=== PATIENT | male | born 1960 | race Caucasian/White ===

== ENCOUNTER 2020-08-15 06:53 | Outpatient (NON) | payer BC, SELFPAY ==
[2020-08-16 01:47] LABS: SARS-CoV-2 RNA PCR Positive
== END 2020-08-15 06:54 ==
LOC: ANHCOVIDDT 07:22
PROVIDERS: PCP Family Medicine; Visit Provider Physician Assistant Medical
DX: U07.1 COVID-19 (principal)
CPT/HCPCS: 87635; C9803; U0003

== ENCOUNTER 2022-12-13 01:01 | Day surgery (SDC) | payer BC, SELFPAY ==
[2022-12-01 14:20] VITALS: BMI 29.1
[2022-12-13 11:54] VITALS: BP 132/86; PULSE 55; RESP 16; TEMP 35.9; O2SAT 99
--- NOTE | 2022-12-13 12:02 | WPDANESEPPF ---
Anes - Initial Pre Proc Eval Procedure: Operation Date: 12/13/22 13:00 Proposed Procedures p Esophagogastroduodenoscopy EGD - Edinson Fagan MD Date/Time: 12/13/22 12:02 Surgeon: Edinson Fagan MD Pre Op Diagnosis: other disease of vocal cord and GERD Patient Data Age: 62 Gender: M Height: 1.73 m Weight: 89.3 kg Last Vital Signs Temp 35.9 C L 12/13/22 11:54 Pulse 55 L 12/13/22 11:54 Resp 16 12/13/22 11:54 BP 132/86 12/13/22 11:54 Pulse Ox 99 12/13/22 11:54 O2 Del Method Room Air 12/13/22 11:54 Allergies Allergy/AdvReac Type Severity Reaction Status Date / Time prednisone AdvReac Unknown Unknown Verified 12/13/22 11:51 Home Medications Medication Instructions Recorded Confirmed Type loratadine 10 mg tablet (Claritin) 10 mg PO DAILY 05/14/22 12/13/22 History pseudoephedrine HCl 30 mg tablet 30 mg PO Q4-6H PRN Allergy Symptoms 05/14/22 12/13/22 History (Sudafed) sildenafil (pulm.hypertension) 20 20 mg PO DAILY PRN sexual activity 08/05/22 12/13/22 Rx mg tablet #30 tabs clobetasol 0.05 % topical foam 1 applic topical DAILY #100 grams 11/12/22 12/13/22 Rx lisinopril 5 mg tablet 5 mg PO DAILY #90 tabs 11/12/22 12/13/22 Rx Patient hx anesthesia problems: none Family hx anesthesia problems: none Results Review: All pre-operative results and documents have been reviewed as part of the pre-operative evaluation. [facility] Past Medical History Medical History Anosmia COVID-19 Obesity (BMI 30.0-34.9) Obstructive sleep apnea Family History Family History Sibling Family history of ulcerative colitis Father Family history of kidney disease Social History Social History (Updated 11/12/22 @ 14:40 by Jesus Montoya MA) Smoking status: Never smoker Alcohol intake: current Drinks per week: 6 Alcohol use details: on occasion Substance use: never Substance use type: does not use Lack of Transportation: No Lack of Food: Never True Current Housing: I Have Housing Concerned About Future Housing: No Difficulty Paying Gas/Electric Bills: No Difficulty Paying for Meds: No Currently Unemployed: No Education: Bachelor's Degree Difficulty w/ Childcare or Family Care: No Living arrangements: with family Occupation/Education: occupation Gender identity (if verbalized by the patient): Male Spiritual care concerns: No Anes - Eval Final PreProcedure Day of Procedure 12/13/22 12:02 Patient weight: obese Heart: regular rate and rhythm Lungs: clear to auscultation and normal air movement Airway: Mallampati scale class II Neurological: alert and oriented Last oral intake: >/= 8 hours ASA classification: III Emergent: no Anesthetic plan: proceed Anesthesia type and monitoring: general GIVS Results Review: All pre-operative results and documents have been reviewed as part of the pre-operative evaluation. Informed Consent: The patient's anesthetic plan and its attendant risks and benefits were discussed with the patient/family/POA. Questions were solicited and answers provided to the satisfaction of the patient/family/POA.
[2022-12-13] MEDS: LACTATED RINGERS 1,000 ML 150 ML IV CONT (12:04)
--- NOTE | 2022-12-13 12:43 | PM.HPGS ---
History of Present Illness History of Present Illness Consent: Risks, benefits, and alternatives have been discussed and questions answered. Patient agrees to proceed with procedure. Chief complaint: other disease of vocal cord and GERD Narrative: Andrea Rosas is a 62 year old male Was referred for investigation for possible acid reflux. He has had frequent cough and occasional sensation that things are going down the wrong pipe he denies dysphagia. He has had no vomiting or weight loss. He saw an ENT physician who said that everything, including the vocal cords, looked perfect Review of Systems Review of Systems: All systems reviewed & are unremarkable except as noted in HPI and below PMFSH Past Medical History Medical History Anosmia COVID-19 Obesity (BMI 30.0-34.9) Obstructive sleep apnea Family History Family History Sibling Family history of ulcerative colitis Father Family history of kidney disease Social History Social History Smoking status: Never smoker Alcohol intake: current Drinks per week: 6 Alcohol use details: on occasion Substance use: never Substance use type: does not use Lack of Transportation: No Lack of Food: Never True Current Housing: I Have Housing Concerned About Future Housing: No Difficulty Paying Gas/Electric Bills: No Difficulty Paying for Meds: No Currently Unemployed: No Education: Bachelor's Degree Difficulty w/ Childcare or Family Care: No Living arrangements: with family Occupation/Education: occupation Gender identity (if verbalized by the patient): Male Spiritual care concerns: No Meds Home Medications and Allergies Home Medications Medication Instructions Recorded Confirmed Type loratadine 10 mg tablet (Claritin) 10 mg PO DAILY 05/14/22 12/13/22 History pseudoephedrine HCl 30 mg tablet 30 mg PO Q4-6H PRN Allergy Symptoms 05/14/22 12/13/22 History (Sudafed) sildenafil (pulm.hypertension) 20 20 mg PO DAILY PRN sexual activity 08/05/22 12/13/22 Rx mg tablet #30 tabs clobetasol 0.05 % topical foam 1 applic topical DAILY #100 grams 11/12/22 12/13/22 Rx lisinopril 5 mg tablet 5 mg PO DAILY #90 tabs 11/12/22 12/13/22 Rx Allergies Allergy/AdvReac Type Severity Reaction Status Date / Time prednisone AdvReac Unknown Unknown Verified 12/13/22 11:51 Vital Signs Vital Signs - 24 hr 12/13/22 11:54 Temperature 35.9 C L Pulse Rate 55 L Respiratory Rate 16 Blood Pressure 132/86 Pulse Oximetry 99 Oxygen Delivery Room Air Exam Const: General: alert Orientation/consciousness: patient oriented x3 Resp: Auscultation: clear to auscultation bilaterally Cardio: Rhythm: regular rhythm GI: GI Palp: Yes Soft to palpation and No Tenderness to palpation present (GI) Neuro: General: patient oriented x3 Assessment and Plan Assessment and plan (1) GERD (gastroesophageal reflux disease): Code(s): K21.9 - Gastro-esophageal reflux disease without esophagitis Status: Acute Assessment and Plan: EGD with possible biopsy or dilatation or cautery.
[2022-12-13 12:54] VITALS: BP 111/71; PULSE 58; RESP 16; O2SAT 99
[2022-12-13 13:04] VITALS: BP 109/70; PULSE 64; RESP 20; O2SAT 99
[2022-12-13 13:14] VITALS: BP 116/82; PULSE 56; RESP 15; O2SAT 99
[2022-12-13 13:24] VITALS: BP 117/77; PULSE 59; RESP 15; O2SAT 99
== END 2022-12-13 13:25 | disposition home or self-care (01) ==
PROVIDERS: PCP Family Medicine; Visit Provider Internal Medicine Gastroenterology
PROC: 0DJ08ZZ Inspection of Upper Intestinal Tract, Via Natural or Artificial Opening Endoscopic (ICD-10-PCS; CPT 43235; principal; 2022-12-13 13:00)
DX: K21.9 Gastro-esophageal reflux disease without esophagitis (principal); K29.70 Gastritis, unspecified, without bleeding; G47.33 Obstructive sleep apnea (adult) (pediatric); E66.9 Obesity, unspecified; Z68.29 Body mass index [BMI] 29.0-29.9, adult
CPT/HCPCS: 43239; 87081; 88305; J2704; J7120

== ENCOUNTER 2025-08-13 14:30 | Outpatient (RCR) | payer BC, SELFPAY ==
--- NOTE | 2025-07-09 16:45 | STOPEVAL1 ---
Assessment and note entered by Merissa Yen, PLACEMENT OFFICER Evaluation Information Assessment Status Evaluation Diagnosis J38.7 J38.3 Subjective Information The patient is a 65 year old male referred for outpatient speech therapy services following consultation with his PCP. His chief complaints are of persistent dysphagia (coughing with food and liquid) and persistent coughing in general as much as 6-12 times daily. He reports these have persisted for approximately 3-4 years. He currently takes Prilosec for reflux with some improvement and Flonase for post nasal drip. He is currently receiving weekly allergy shots through his chief marketing officer for the past 6 months. He doesn't report significant daily speaking or excessive caffeine use. No reported history of pneumonia or bronchitis. Reported Pain Level Pain Score 0: Self Report Assessment ST Clinical Summary The patient is a 65 year old male referred for outpatient speech therapy services following consultation with his PCP. His chief complaints are of persistent dysphagia (coughing with food and liquid) and persistent coughing in general as much as 6-12 times daily. He reports these have persisted for approximately 3-4 years. He currently takes Prilosec for reflux with some improvement and Flonase for post nasal drip. He is currently receiving weekly allergy shots through his chief marketing officer for the past 6 months. He doesn't report significant daily speaking or excessive caffeine use. No reported history of pneumonia or bronchitis. The patient was administered the [facility] Voice Evaluation and Vocal Hygiene Assessment. Results were as follows: Vocal Hygiene: The patient reports minimal caffeine use with adequate water intake: Takes Prilosec for acid reflux and Flonase for post nasal drip. Minimal weekly vocal use. Results of the Voice Evaluation: Respiration: Equal MPT (Maximum Phonation Time) for voiced and voiceless s/z 30/30 second ratio respectively. Sustained /a/ produced for 25 seconds and /e/ produced for 23 seconds respectively with good breath support noted for simple exchanges. Some loss of respiration support with prolonged counting and/or speaking triggering a cough reflex or throat clearing episode. Able to count to 31 on one breath. Phonation: The patient demonstrates a mildly harsh vocal quality with vocalization/ speech production. Pitch: Optimal level of 120 hertz with counting, phrases, and sentences. Voiced /ah/ for 25 seconds without pitch break, voiced /e/ for 23 seconds without pitch breaks noted via voice meter in close proximity. Lowest pitch achieved 100 Hertz. Speaking fundamental frequency of 130 Hertz. Highest pitch achieved 200 Hertz Loudness: Able to produce a 25 second sustained voicing for /ah and a 23 second sustained voicing for /e/ at 67 and 60 decibels respectively. Passage and conversation speech produced at 60 decibels in close proximity as measured by a voice meter. Results and recommendations were reviewed with the patient. Recommend speech services 1x a week x 10 visits to address laryngeal tension exercises, diaphragmatic breathing to increase breath support and address airflow control and coordination with speech production, and vocal hygiene behavior modification as indicated. Dysphagia concerns: Did assess trials thin and soft mixed textures while present without noted clinical signs of aspiration . However, if persistent may consider MBS in future. Plan of Care Interventions Treatment of Voice ST Services Indicated Yes Treatment Frequency and 1x a week x 10 visits. Duration These treatments will address the objective and functional deficits as defined above. The patient will be advanced safely and appropriately in order for the patient to progress towards his/her prior level of function. Additional exercises will be introduced and as well as a comprehensive home exercise program upon discharge, if needed, ?to ensure carryover of functional gains achieved in the clinic. This treatment plan has been reviewed and agreement upon by the patient.
--- NOTE | 2025-07-09 16:46 | OPREHPOC ---
Outpatient Therapy Plan of Care This is a Multidisciplinary Plan of Care that may contain components documented by all disciplines (PT, OT, and ST.) ST Problem 1 ST Problem #[address] Goal 1 Goal / Goal Update The patient will participate in home programming to improve carry over/generalization of skills to the home environment Target Visit 4 ST Goal 1 Goal / Goal Update Voice: 1. The patient will learn techniques to improve vocal hygiene and eliminate behaviors that be contribute to voice concerns. 2. The patient will be provided written HEP with neck and shoulder exercises to increase muscle awareness and relaxation of laryngeal tension. 3. The patient will learn diaphragmatic breathing techniques and methods of easy airflow release during speech 80% minimal cues. 4. The patient will engage in exercises to increase coordination/control of respiration and phonation 80% minimal cues. 5. The patient will improve self-monitoring of vocal quality, onset of phonation, volume, and laryngeal tension during conversational voice use 80% minimal cues. Target Visit 10
--- NOTE | 2025-08-13 15:11 | STOPDC ---
Assessment and note entered by Merissa Yen MOLDED PARTS INSPECTOR Evaluation Information Assessment Status Discharge Reported Pain Level Pain Score 0: Self Report Assessment ST Clinical Summary Initial Evaluation: The patient is a 65 year old male referred for outpatient speech therapy services following consultation with his PCP. His chief complaints are of persistent dysphagia (coughing with food and liquid) and persistent coughing in general as much as 6-12 times daily. He reports these have persisted for approximately 3-4 years. He currently takes Prilosec for reflux with some improvement and Flonase for post nasal drip. He is currently receiving weekly allergy shots through his flexographic press set up operator for the past 6 months. He doesn't report significant daily speaking or excessive caffeine use. No reported history of pneumonia or bronchitis. The patient was administered the [facility] Voice Evaluation and Vocal Hygiene Assessment. Results were as follows: Vocal Hygiene: The patient reports minimal caffeine use with adequate water intake: Takes Prilosec for acid reflux and Flonase for post nasal drip. Minimal weekly vocal use. Results of the Voice Evaluation: Respiration: Equal MPT (Maximum Phonation Time) for voiced and voiceless s/z 30/30 second ratio respectively. Sustained /a/ produced for 25 seconds and /e/ produced for 23 seconds respectively with good breath support noted for simple exchanges. Some loss of respiration support with prolonged counting and/or speaking triggering a cough reflex or throat clearing episode. Able to count to 31 on one breath. Phonation: The patient demonstrates a mildly harsh vocal quality with vocalization/ speech production. Pitch: Optimal level of 120 hertz with counting, phrases, and sentences. Voiced /ah/ for 25 seconds without pitch break, voiced /e/ for 23 seconds without pitch breaks noted via voice meter in close proximity. Lowest pitch achieved 100 Hertz. Speaking fundamental frequency of 130 Hertz. Highest pitch achieved 200 Hertz Loudness: Able to produce a 25 second sustained voicing for /ah and a 23 second sustained voicing for /e/ at 67 and 60 decibels respectively. Passage and conversation speech produced at 60 decibels in close proximity as measured by a voice meter. Results and recommendations were reviewed with the patient. Recommend speech services 1x a week x 10 visits to address laryngeal tension exercises, diaphragmatic breathing to increase breath support and address airflow control and coordination with speech production, and vocal hygiene behavior modification as indicated. Dysphagia concerns: Did assess trials thin and soft mixed textures while present without noted clinical signs of aspiration . However, if persistent may consider MBS in future. 08/13/25: Discharge: The patient has come for 4 treatment sessions to address voice and swallowing. He has been proved a HEP(Home Exercise Program) to include diaphragmatic breathing, laryngeal tension exercises, and control for respiration and phonation. He has increased awareness with controlled swallow to reduce aspiration risk and has reported some decreased in throat clearing. He feels at this time he has the tools to continue the techniques provided in treatment. Thank you for the consult Plan of Care ST Services Indicated No
== END 2025-08-13 17:08 | disposition home or self-care (01) ==
LOC: ANHST 14:30
PROVIDERS: PCP Family Medicine; Visit Provider Family Medicine
DX: J38.7 Other diseases of larynx (principal); J38.3 Other diseases of vocal cords; K21.9 Gastro-esophageal reflux disease without esophagitis
CPT/HCPCS: 92507; 92524